=== PATIENT | female | born 1980 | race Caucasian/White ===

== ENCOUNTER 2023-12-30 10:20 | Emergency (ER) | payer BC ==
[~2023-12-30] VITALS: Ht 172.7 cm; Wt 81.6 kg
[2023-12-30 10:40] VITALS: BP_SYST 148; PULSE 85; RESP 18; TEMP 98.3; O2SAT 98
[2023-12-30 11:54] LABS: BASOPHILS % (AUTO) 0.4 % (0.0-2.0); EOSINOPHILS # (AUTO) 0.1 K/uL (0.0-0.4); EOSINOPHILS % (AUTO) 1.9 % (0.0-4.0); HEMATOCRIT 42.2 % (36-48); HEMOGLOBIN 14.3 g/dL (12.0-16.0); LYMPHOCYTES # (AUTO) 1.7 K/uL (1.0-5.5); MEAN CORPUSCULAR HEMOGLOBIN 31 pg (27-31); MEAN CORPUSCULAR HGB CONC 34 % (32-36); MEAN CORPUSCULAR VOLUME 91 fL (79.0-98.0); MONOCYTES # (AUTO) 0.5 K/uL (0.0-1.0); MONOCYTES % (AUTO) 7.3 % (1.7-9.3); NEUTROPHILS # (AUTO) 4.6 K/uL (1.8-7.7); NEUTROPHILS % (AUTO) 66.4 % (40.0-70.0); PLATELET COUNT (AUTO) 316 K/uL (130-430); RED BLOOD CELL COUNT(AUTO) 4.66 MIL/uL (4.2-6.2); RED CELL DISTRIBUTION WIDTH 14.7 % (9.0-15.0); WHITE BLOOD COUNT (AUTO) 6.9 K/uL (4.8-10.8)
[2023-12-30 12:09] LABS: ALBUMIN 3.8 g/dL (3.4-4.8); CALCIUM 8.3 mg/dL (8.4-11.0); CREATININE 0.72 mg/dL (0.55-1.30); POTASSIUM 4.1 mmol/L (3.5-5.1); TOTAL BILIRUBIN 0.4 mg/dL (0.0-1.0)
[2023-12-30] MEDS ORDERED: P-EP-92 PO (13:08)
[2023-12-30] MEDS ORDERED: METH-776 PO (13:08)
[2023-12-30] MEDS: DIPHENHYDRAMINE INJ 50 MG/ML VIAL IM ONE (13:24)
[2023-12-30] MEDS: EPINEPHRINE HCL/PF 1 MG/ML AMP IM ONE (13:24)
[2023-12-30] MEDS: methylPREDNISolone SOD SUCC/PF 62.5 MG/ML VIAL IM ONE (13:24)
[2023-12-30 14:09] VITALS: BP_SYST 148; PULSE 76; RESP 18; TEMP 98.3; O2SAT 98
== END 2023-12-30 14:09 | disposition home or self-care (01) ==
LOC: SED 10:20
DX: L50.0 Allergic urticaria (principal); Z79.899 Other long term (current) drug therapy
CPT/HCPCS: 99284; 80053; 85025; 36415; 96372; J1200; J0171; J2930